=== PATIENT | male | born 1940 | race Caucasian/White ===

== ENCOUNTER 2018-02-15 07:30 | Emergency (ER) | payer MEDICARE ==
[~2018-02-15] VITALS: Ht 175.3 cm; Wt 70.0 kg
[2018-02-15] MEDS ORDERED: IODIXANOL 320 MG/ML 10 ML VIAL (for Rad CT) IVCONTRAST ONE (07:31)
[2018-02-15 07:33] VITALS: BP 147/75; PULSE 55; RESP 15; TEMP 97.6; O2SAT 100
[2018-02-15] MEDS ORDERED: SODIUM CHLORIDE 0.9% FLUSH 10 ML FLUSH IV FLUSH PRN (07:45)
[2018-02-15] MEDS ORDERED: ONDANSETRON HCL 4 MG/2 ML VIAL IVP ONE (07:45)
[2018-02-15] MEDS ORDERED: LIDOCAINE VISCOUS 2% SOLN 15 ML UDC PO ONE (07:45)
[2018-02-15] MEDS ORDERED: HYDROmorphone HCL PF 1 MG/ML VIAL IVS ONE (07:45)
[2018-02-15] MEDS ORDERED: ALUMINUM/MAGNESIUM/SIMETH 30 ML CUP PO ONE (07:45)
[2018-02-15] MEDS ORDERED: SODIUM CHLOR 0.9% 1000 ML INJ 1,000 ML IV SCH (07:45)
[2018-02-15 07:51] VITALS: BP 166/85; PULSE 59; RESP 17; TEMP 97.6; O2SAT 96
[2018-02-15] MEDS ORDERED: ATOR80TA45 PO (08:05)
[2018-02-15] MEDS ORDERED: OMEP40CA2 PO (08:05)
[2018-02-15] MEDS ORDERED: ASPI81CH7 CHEW (08:05)
[2018-02-15] MEDS ORDERED: LISI-519 PO (08:05)
[2018-02-15] MEDS ORDERED: METO1TAB42 PO (08:05)
--- NOTE | 2018-02-15 08:11 | PD ---
HPI Chief Complaint: Abdominal Pain Time Seen by Provider: 07:40 Travel History International Travel<30 days: No Contact w/Intl Traveler<30days: No Traveled to known affect area: No History of Present Illness HPI The patient 77 years old and arrives to the ER as an emergency response team patient. He was here with his when he felt a sudden abdominal pain supraumbilical location which was severe. Associated symptoms include nausea. He denies fever or chest pain shortness of breath. No similar prior episode has occurred. He reports no change in his normal state of health for the past couple days. No fever or chills. No diaphoresis reported. Onset sudden. Timing constant. PFSH Social History Tobacco Use: No Allergies-Medications (Allergen,Severity, Reaction): Coded Allergies: No Known Allergies (Unverified , 02/15/18) Reported Meds & Prescriptions Reported Meds & Active Scripts Active Reported Atorvastatin (Atorvastatin Calcium) 80 Mg Tab 80 Mg PO HS Omeprazole 40 Mg Cap 40 Mg PO DAILY Aspirin Children's (Aspirin) 81 Mg Chew 81 Mg CHEW DAILY Metoprolol Succinate ER 24 HR (Metoprolol Succinate) 25 Mg Tab 25 Mg PO DAILY Lisinopril 5 Mg Tab 5 Mg PO DAILY Review of Systems Except as stated in HPI: all other systems reviewed are Neg General / Constitutional: No: Fever Cardiovascular: No: Chest Pain or Discomfort Gastrointestinal: Positive: Nausea, Abdominal Pain, No: Vomiting, Diarrhea Physical Exam Narrative GENERAL: 77-year-old male pleasant well-nourished well-developed mild to moderate distress secondary to pain and/or anxiety Vital Signs Date Time Temp Pulse Resp B/P (MAP) Pulse Ox O2 Delivery O2 Flow Rate FiO2 02/15/18 07:51 97.6 59 17 166/85 (112) 96 Room Air 02/15/18 07:33 97.6 55 15 147/75 (99) 100 SKIN: Warm and dry. HEAD: Atraumatic. Normocephalic. EYES: Pupils equal and round. No scleral icterus. No injection or drainage. ENT: No nasal bleeding or discharge. Mucous membranes pink and moist. NECK: Trachea midline. No JVD. CARDIOVASCULAR: Regular rate and rhythm. RESPIRATORY: No accessory muscle use. Clear to auscultation. Breath sounds equal bilaterally. GASTROINTESTINAL: There is a supraumbilical tenderness. Abdomen is otherwise soft. MUSCULOSKELETAL: Extremities without clubbing, cyanosis, or edema. No obvious deformities. NEUROLOGICAL: Awake and alert. No obvious cranial nerve deficits. Motor grossly within normal limits. Five out of 5 muscle strength in the arms and legs. Normal speech. PSYCHIATRIC: Appropriate mood and affect; insight and judgment normal. Data Data Last Documented VS Vital Signs Date Time Temp Pulse Resp B/P (MAP) Pulse Ox O2 Delivery O2 Flow Rate FiO2 02/15/18 09:05 63 12 157/76 (103) Room Air 02/15/18 07:51 97.6 96 Orders Orders Complete Blood Count With Diff (02/15/18 07:45) Comprehensive Metabolic Panel (02/15/18 07:45) Lipase (02/15/18 07:45) Lactic Acid (02/15/18 07:45) Prothrombin Time / Inr (Pt) (02/15/18 07:45) Act Partial Throm Time (Ptt) (02/15/18 07:45) Urinalysis - C+S If Indicated (02/15/18 07:45) Ct Abd/Pel W Iv Contrast(Rout) (02/15/18 07:45) Iv Access Insert/Monitor (02/15/18 07:45) Ecg Monitoring (02/15/18 07:45) Oximetry (02/15/18 07:45) Ondansetron Inj (Zofran Inj) (02/15/18 07:45) Sodium Chlor 0.9% 1000 Ml Inj (Ns 1000 M (02/15/18 07:45) Sodium Chloride 0.9% Flush (Ns Flush) (02/15/18 07:45) Electrocardiogram (02/15/18 07:45) Hydromorphone Pf Inj (Dilaudid Pf Inj) (02/15/18 07:45) Al-Mag Hy-Si 40-40-4 Mg/Ml Liq (Mag-Al P (02/15/18 07:45) Lidocaine 2% Viscous (Xylocaine 2% Visco (02/15/18 07:45) Troponin I (02/15/18 08:05) Creatine Kinase (Cpk) (02/15/18 08:05) Iodixanol 320 Inj (Rad Ct) (Visipaque 32 (02/15/18 07:31) Ed Discharge Order (02/15/18 10:25) Labs Laboratory Tests Test 02/15/18 07:55 02/15/18 07:58 02/15/18 09:20 White Blood Count 10.5 TH/MM3 Red Blood Count 4.21 MIL/MM3 Hemoglobin 13.9 GM/DL Hematocrit 40.7 % Mean Corpuscular Volume 96.8 FL Mean Corpuscular Hemoglobin 33.1 PG Mean Corpuscular Hemoglobin Concent 34.2 % Red Cell Distribution Width 13.1 % Platelet Count 246 TH/MM3 Mean Platelet Volume 7.9 FL Neutrophils (%) (Auto) 64.0 % Lymphocytes (%) (Auto) 21.1 % Monocytes (%) (Auto) 7.6 % Eosinophils (%) (Auto) 6.7 % Basophils (%) (Auto) 0.6 % Neutrophils # (Auto) 6.7 TH/MM3 Lymphocytes # (Auto) 2.2 TH/MM3 Monocytes # (Auto) 0.8 TH/MM3 Eosinophils # (Auto) 0.7 TH/MM3 Basophils # (Auto) 0.1 TH/MM3 CBC Comment DIFF FINAL Differential Comment Prothrombin Time 10.0 SEC Prothromb Time International Ratio 1.0 RATIO Activated Partial Thromboplast Time 24.3 SEC Blood Urea Nitrogen 22 MG/DL Creatinine 1.68 MG/DL Random Glucose 102 MG/DL Total Protein 7.5 GM/DL Albumin 3.8 GM/DL Calcium Level 8.9 MG/DL Alkaline Phosphatase 53 U/L Aspartate Amino Transf (AST/SGOT) 25 U/L Alanine Aminotransferase (ALT/SGPT) 38 U/L Total Bilirubin 0.5 MG/DL Sodium Level 140 MEQ/L Potassium Level 4.9 MEQ/L Chloride Level 106 MEQ/L Carbon Dioxide Level 28.1 MEQ/L Anion Gap 6 MEQ/L Estimat Glomerular Filtration Rate 40 ML/MIN Total Creatine Kinase 115 U/L Troponin I LESS THAN 0.02 NG/ML Lipase 271 U/L Lactic Acid Level 0.9 mmol/L Urine Color YELLOW Urine Turbidity CLEAR Urine pH 8.0 Urine Specific [place] 1.018 Urine Protein NEG mg/dL Urine Glucose (UA) NEG mg/dL Urine Ketones NEG mg/dL Urine Occult Blood NEG Urine Nitrite NEG Urine Bilirubin NEG Urine Urobilinogen LESS THAN 2.0 MG/DL Urine Leukocyte Esterase NEG Urine RBC 3 /hpf Urine WBC 1 /hpf Urine Squamous Epithelial Cells <1 /hpf Microscopic Urinalysis Comment CULT NOT INDICATED MDM Medical Decision Making Medical Screen Exam Complete: Yes Emergency Medical Condition: Yes Differential Diagnosis Gastritis, pancreatitis, appendicitis, acute cholecystitis, ascending cholangitis, AAA, perforated viscous, mesenteric ischemia, hepatitis, cystitis, hydronephrosis/hydroureter/nephroureter calculus, mesenteric adenitis, biliary colic Narrative Course EKG shows a sinus bradycardia with a rate of 57 and a left bundle branch block pattern CBC & BMP Diagram 02/15/18 07:55 Total Protein 7.5, Albumin 3.8, Calcium Level 8.9, Alkaline Phosphatase 53, Aspartate Amino Transf (AST/SGOT) 25, Alanine Aminotransferase (ALT/SGPT) 38, Total Bilirubin 0.5 Troponins less than 0.02 Lactic acid 0.9 Urinalysis is negative for UTI Last Impressions Abdomen/Pelvis CT 02/15/18 0745 Signed Impressions: Service Date/Time: January 09:31 - CONCLUSION: 1. Mild diffuse urinary bladder wall thickening which is nonspecific. 2. Small hiatal hernia. 3. Degenerative changes and scoliosis of the lumbar spine. Froylan Schafer MD LBBB is chronic. d/w Dr Shah Pt reports complete resolution of symptoms at 10:20 AM. We discussed the bladder wall thickening on CT and he states he has undergone cystoscopy. Return precautions discussed. Pt ready for discharge. Diagnosis Primary Impression: Abdominal pain Qualified Codes: R10.10 - Upper abdominal pain, unspecified Additional Impression: Bladder wall thickening Referrals: Dillon Raza DO 2 days Bladder wall thickening on CT No hematuria or UTI Med/Other Pt SpecificInfo: No Change to Meds Disposition: 01 DISCHARGE HOME Condition: Stable Claude Cramer MD Feb 15, 2018 08:10
[2018-02-15 08:31] LABS: AUTOMATED NEUTROPHIL # 6.7 TH/MM3 (1.8-7.7); BASOPHIL # 0.1 TH/MM3 (0-0.2); BASOPHIL % 0.6 % (0.0-2.0); EOSINOPHIL # 0.7 TH/MM3 (0-0.4); EOSINOPHIL % 6.7 % (0.0-4.0); HEMATOCRIT 40.7 % (39.0-51.0); HEMOGLOBIN 13.9 GM/DL (13.0-17.0); LYMPH % 21.1 % (9.0-44.0); LYMPHOCYTE # 2.2 TH/MM3 (1.0-4.8); MEAN CELL VOLUME 96.8 FL (80.0-100.0); MEAN CORPUSCULAR HEMOGLOBIN 33.1 PG (27.0-34.0); MEAN CORPUSCULAR HGB CONC 34.2 % (32.0-36.0); MEAN PLATELET VOLUME 7.9 FL (7.0-11.0); MONO % 7.6 % (0.0-8.0); MONOCYTE # 0.8 TH/MM3 (0-0.9); PLATELET COUNT 246 TH/MM3 (150-450); RED BLOOD COUNT 4.21 MIL/MM3 (4.50-5.90); RED CELL DISTRIBUTION WIDTH 13.1 % (11.6-17.2); WHITE BLOOD COUNT 10.5 TH/MM3 (4.0-11.0)
[2018-02-15 08:41] LABS: ALBUMIN 3.8 GM/DL (3.4-5.0); ALT (GPT) 38 U/L (12-78); AST (GOT) 25 U/L (15-37); BICARBONATE 28.1 MEQ/L (21.0-32.0); BLOOD UREA NITROGEN 22 MG/DL (7-18); CALCIUM 8.9 MG/DL (8.5-10.1); CHLORIDE 106 MEQ/L (98-107); CREATININE 1.68 MG/DL (0.60-1.30); GLOMERULAR FILTRATION RATE 40 ML/MIN (>89); GLUCOSE,RANDOM 102 MG/DL (74-106); SODIUM (NA) 140 MEQ/L (136-145)
[2018-02-15 08:43] LABS: ALKALINE PHOSPHATASE 53 U/L (45-117); TOTAL BILIRUBIN ADULT 0.5 MG/DL (0.2-1.0); TOTAL PROTEIN 7.5 GM/DL (6.4-8.2)
[2018-02-15 09:05] VITALS: BP 157/76; PULSE 63; RESP 12
[2018-02-15 09:32] LABS: TROPONIN I LESS THAN 0.02 NG/ML (0.02-0.05)
[2018-02-15 09:47] LABS: BILIRUBIN, URINE NEG (NEG); BLOOD, URINE NEG (NEG); GLUCOSE,URINE NEG (NEG); KETONE, URINE NEG (NEG); NITRITE,URINE NEG (NEG); SQUAMOUS EPITHELIAL CELL URINE <1 /hpf (0-5); URINE COLOR YELLOW (YELLW/STRAW); URINE LEUKOCYTE ESTERASE NEG (NEG)
--- NOTE | 2018-02-15 10:04 | RADRPT ---
EXAM DATE/TIME: 02/15/2018 09:31 [facility] COMPARISON: No previous studies available for comparison. INDICATIONS : Abdominal pain. IV CONTRAST: 85 cc Visipaque (iodixanol) IV ORAL CONTRAST: No oral contrast ingested. RADIATION DOSE: 5.05 CTDIvol (mGy) MEDICAL HISTORY : Hypertension. SURGICAL HISTORY : None. ENCOUNTER: Initial ACUITY: 1 day PAIN SCALE: 6/10 LOCATION: mid-abdomen. TECHNIQUE: Volumetric scanning of the abdomen and pelvis was performed. Using automated exposure control and ad justment of the mA and/or kV according to patient size, radiation dose was kept as low as reasonably achievable to obtain optimal diagnostic quality images. DICOM format image data is available electro nically for review and comparison. FINDINGS: LOWER LUNGS: The visualized lower lungs are clear. Small hiatal hernia is noted. LIVER: Homogeneous density without lesion. There is no dilation of the biliary tree. No calcified [place] es. SPLEEN: Normal size without lesion. PANCREAS: Within normal limits. KIDNEYS: Normal in size and shape. There is no mass, stone or hydronephrosis. ADRENAL GLANDS: Within normal limits. VASCULAR: There is no aortic aneurysm. BOWEL/MESENTERY: The stomach, small bowel, and colon demonstrate no acute abnormality. There is no free intraperitone al air or fluid. No acute appendicitis is noted. ABDOMINAL WALL: Within normal limits. RETROPERITONEUM: There is no lymphadenopathy. BLADDER: Mild diffuse urinary bladder wall thickening which is nonspecific. REPRODUCTIVE: Within normal limits. INGUINAL: There is no lymphadenopathy or hernia. MUSCULOSKELETAL: Degenerative changes and scoliosis of the lumbar spine are noted. CONCLUSION: 1. Mild diffuse urinary bladder wall thickening which is nonspecific. 2. Small hiatal hernia. 3. Degenerative changes and scoliosis of the lumbar spine. Froylan Schafer MD on February 15, 2018 at 9:54 Board Certified Radiologist. This report was verified electronically.
--- NOTE | 2018-02-15 13:42 | EKG ---
Date Performed: 02/15/2018 Time Performed: 07:53:41 PTAGE: 77 years EKG: SINUS BRADYCARDIA MARKED LEFT AXIS DEVIATION LEFT BUNDLE BRANCH BLOCK ABNORMAL ECG NO PREVIOUS TRACING DOCTOR: Wilver Gutierrez Interpretating Date/Time 02/15/2018 13:26:49
== END 2018-02-15 10:52 | disposition home or self-care (01) ==
LOC: NEPE 07:30
DX: R10.10 Upper abdominal pain, unspecified (principal); N32.89 Other specified disorders of bladder; R00.1 Bradycardia, unspecified
CPT/HCPCS: 74177; 80053; 81001; 82550; 83605; 83690; 84484; 85025; 85610; 85730; 93005; 96361; 96374; 99285; J2405; J7030; Q9967